=== PATIENT | male | born 1945 | race Caucasian/White ===

== ENCOUNTER → 2017-03-08 | Outpatient (CLI) | payer OTHER ==
[2017-03-08 13:21] LABS: CHOLESTEROL/HDL RATIO 4.6
== END | disposition home or self-care (01) ==
LOC: C.LABBFT 11:01
PROVIDERS: ATTEND Internal Medicine
DX: E78.5 Hyperlipidemia, unspecified (principal)

== ENCOUNTER → 2017-04-19 | Outpatient (CLI) | payer OTHER ==
--- NOTE | 2017-04-19 09:50 | DIAGNOSTIC IMAGING REPORT ---
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 This is similar to and/or only slightly increased in diameter compared to the prior exam. Iliac vasculature remains unremarkable. IMPRESSION: Stable to slightly increase in distention of the distal abdominal aorta currently measuring 3.2 cm. Electronically signed by: Bryn Renner M.D. 04/19/2017 9:48 AM Dictated Date/Time: 04/19/2017 9:46 AM
--- NOTE | 2017-04-19 10:21 | DIAGNOSTIC IMAGING REPORT ---
CT OF THE CHEST WITHOUT IV CONTRAST CLINICAL HISTORY: R91.8 Multiple pulmonary [id number] COMPARISON STUDY: 03/08/2016 , August 20, 2015 CT DOSE: 511.27 mGycm TECHNIQUE: CT of the thorax was performed from the thoracic inlet to the lung bases. Images are reviewed in the axial, sagittal, and coronal planes. IV contrast was not administered for this examination. FINDINGS: Thyroid: Imaged portions of the thyroid gland are normal in appearance. Thoracic aorta: The thoracic aorta is normal in course and caliber, noting standard 3 vessel arch anatomy. Heart: The heart is normal in size. There is no significant pericardial effusion. There are minor coronary artery calcifications. Lungs and pleural spaces: There are no pleural effusions. There is no focal pulmonary consolidation. There is a stable perifissural 3 mm solid left upper lobe pulmonary nodule. There is a stable 3 mm solid perifissural right upper lobe pulmonary nodule. There is a stable 2 mm solid right upper lobe pulmonary nodule. Mediastinum: There is no pathologic mediastinal adenopathy by size criteria Evelyn: There is no evidence of pathologic hilar adenopathy given the limitations of a noncontrast study. Axilla: There is no pathologic axillary lymphadenopathy. Upper abdomen: Partially visualized upper abdominal viscera is within normal limits. Skeletal structures: There are no lytic or blastic osseous lesions. IMPRESSION: 1. No evidence of pathologic adenopathy 2. No evidence of acute parenchymal consolidation 3. Stable tiny solid pulmonary nodules, the largest of which measures 3 mm. Current recommendations indicate no further follow-up is necessary. Electronically signed by: Jesús Cantu M.D. 04/19/2017 10:20 AM Dictated Date/Time: 04/19/2017 10:13 AM
== END | disposition home or self-care (01) ==
LOC: C.ULTR 09:02
PROVIDERS: ATTEND Internal Medicine
DX: I71.4 Abdominal aortic aneurysm, without rupture (principal); R91.8 Other nonspecific abnormal finding of lung field

== ENCOUNTER → 2018-03-30 | Outpatient (CLI) | payer OTHER ==
[2018-03-30 13:01] LABS: ALBUMIN 3.6 gm/dl (3.4-5.0); ALKALINE PHOSPHATASE 71 U/L (45-117); ALT/SGPT 20 U/L (12-78); AST/SGOT 18 U/L (15-37); BLOOD UREA NITROGEN 11 mg/dl (7-18); CALCIUM 9.3 mg/dl (8.5-10.1); CARBON DIOXIDE 29 mmol/L (21-32); CHOLESTEROL 109 mg/dl (0-200); CREATININE 0.76 mg/dl (0.60-1.40); GLUCOSE 103 mg/dl (70-99); LDL CHOLESTEROL CALCULATED 62 mg/dl; POTASSIUM 3.8 mmol/L (3.5-5.1); SODIUM 140 mmol/L (136-145)
== END | disposition home or self-care (01) ==
LOC: C.LABBFT 10:12
PROVIDERS: ATTEND Internal Medicine
DX: Z00.00 Encounter for general adult medical examination without abnormal findings (principal); Z12.5 Encounter for screening for malignant neoplasm of prostate; E78.5 Hyperlipidemia, unspecified